=== PATIENT | male | born 1995 | race African-American/Black ===

== ENCOUNTER 2017-05-02 09:31 | Emergency (ER) | payer OTHER ==
[~2017-05-02] VITALS: Ht 180.3 cm; Wt 61.2 kg
[2017-05-02 09:34] VITALS: BP_SYST 138
[2017-05-02 10:34] VITALS: BP_SYST 135
== END 2017-05-02 10:34 | disposition home or self-care (01) ==
LOC: SED 09:31
DX: S93.492A Sprain of other ligament of left ankle, initial encounter (principal); X58.XXXA Exposure to other specified factors, initial encounter; Y93.89 Activity, other specified; Y92.89 Other specified places as the place of occurrence of the external cause; Y99.8 Other external cause status
CPT/HCPCS: 99284